=== PATIENT | female | born 1990 | race Caucasian/White ===

== ENCOUNTER 2020-12-28 13:10 | Outpatient (CLI) | payer MEDICAID ==
[2020-12-28 13:56] LABS: Appearance,Urine Clear (Clear); Bilirubin,Urine Negative (Negative); Blood,Urine Negative (Negative); Color,Urine Light Yellow; Glucose,Urine (UA) Negative (Negative); Ketones,Urine Negative (Negative); Leukocyte Esterase,Urine Negative (Negative); Nitrite,Urine Negative (Negative); PH, Urine 6.5 (5.0-8.0); Protein,Urine Negative (Negative); Specific Gravity,Urine 1.003 (1.001-1.035); Urobilinogen,Urine <2.0 mg/dL (<2.0)
[2020-12-28 14:10] LABS: Creatinine,Urine Random 21.1 mg/dL; Protein/Creatinine Ratio,Urine 0.521
[2020-12-28 14:30] LABS: Glucose,Whole Blood 78 mg/dL (75-99)
[2020-12-28 15:16] LABS: Basophils % (A) 0 %; Eosinophils # (A) 0.1 k/uL (0-0.7); Eosinophils % (A) 1 %; HCT 37.1 % (34.0-46.0); HGB 12.4 gm/dL (11.4-16.0); Lymphocytes # (A) 1.5 k/uL (1.0-4.8); Lymphocytes % (A) 18 %; MCH 29.9 pg (25.0-35.0); MCHC 33.3 g/dL (31.0-37.0); MCV 89.8 fL (80.0-100.0); Mean Platelet Volume 7.9; Monocytes # (A) 0.3 k/uL (0-1.0); Monocytes % (A) 3 %; Neutrophils # (A) 6.5 k/uL (1.3-7.7); Neutrophils % (A) 77 %; Platelet Count 218 k/uL (150-450); RBC 4.13 m/uL (3.80-5.40); RDW 13.5 % (11.5-15.5); WBC 8.4 k/uL (3.8-10.6)
[2020-12-28 15:28] LABS: ALT 12 U/L (4-34); AST 19 U/L (14-36); African American GFR (CKD) >90 (>60 ml/min/1.73 sqM); Blood Urea Nitrogen 5 mg/dL (7-17); LDH 321 U/L (313-618); Non-African American GFR(CKD) >90 (>60 ml/min/1.73 sqM)
[2020-12-28 16:21] VITALS: BP 133/65; PULSE 74; RESP 18; TEMP 97.8
== END 2020-12-28 15:55 | disposition home or self-care (01) ==
LOC: FBPOP 13:10
PROVIDERS: ATTEND Obstetrics & Gynecology
DX: O14.93 Unspecified pre-eclampsia, third trimester (principal); Z3A.30 30 weeks gestation of pregnancy
CPT/HCPCS: 59025; 81003; 82565; 82570; 83615; 84156; 84450; 84460; 84520; 84550; 85025; 99215

== ENCOUNTER → 2021-01-16 | Outpatient (CLI) | payer MEDICAID ==
--- NOTE | 2021-01-16 16:18 | US ---
EXAMINATION TYPE: US OB >= 14 wk fetus DATE OF EXAM: 01/16/2021 COMPARISON: None CLINICAL HISTORY: O36.63X0 Large for date,O99.810 Gestational diabet, LGA, scheduled for TECHNIQUE: OBTA GESTATIONAL AGE / DATING Physician Established: (32 weeks/5 days) EDC: 03/08/2021 Dates by LMP: LMP unknown Dates by First Scan: No previous this is first scan here Dates by Current Scan: (33 weeks/2 days) EDC: 03/04/2021 SURVEY IUP: Single PLACENTA: Anterior PREVIA: No Previa DINORAH: 13.1 cm Normal CERVICAL LENGTH (transabdominal: norm > 3.0cm): 3.5 cm BIOMETRY PRESENTATION: Vertex LIE: Longitudinal BPD: 8.6 cm 34 weeks / 4 days HC: 31.2 cm 35 weeks / 0 days AC: 29.6 cm 33 weeks / 4 days FL: 6.3 cm 32 weeks / 3 days ESTIMATED WEIGHT IN GRAMS: 2201 grams ESTIMATED WEIGHT IN LBS/OZ: 4 lbs. 14 oz. WEIGHT PERCENTAGE BASED ON ESTABLISHED DATES: 64.5% HC/AC: 1.1 Normal FL/AC: 21.2 Normal HEART RATE: 120 bpm RHYTHM: Normal IMPRESSION: 1. Single intrauterine gestation estimated at 33 weeks 2 days gestation based on current ultrasound m easurements. Cardiac activity measures 120 bpm.
== END | disposition home or self-care (01) ==
LOC: RADUSWWP 12:26
PROVIDERS: ATTEND Obstetrics & Gynecology
DX: O36.63X0 Maternal care for excessive fetal growth, third trimester, not applicable or unspecified (principal); O24.419 Gestational diabetes mellitus in pregnancy, unspecified control; Z3A.33 33 weeks gestation of pregnancy
CPT/HCPCS: 76805

== ENCOUNTER 2021-02-14 16:34 | Outpatient (CLI) | payer MEDICAID ==
[2021-02-14 18:28] VITALS: BP 113/54; PULSE 73; RESP 18; TEMP 97.2
--- NOTE | 2021-02-14 18:49 | US ---
EXAMINATION TYPE: US OB limited DATE OF EXAM: 02/14/2021 COMPARISON: US CLINICAL HISTORY: gestational diabetes.; C section x 1 EXAM PERFORMED: Transabdominal (TA) for DINORAH and weight. GESTATIONAL AGE / DATING Physician Established: (36 weeks/6 days) EDC: 03/08/2021 Dates by Current Scan: (37 weeks/2 days) EDC: 03/05/2021 SURVEY PLACENTA: Anterior PREVIA: No Previa EFW: 3322g, or (7lb 5oz). DINORAH: 7.23 cm first quantitative measure; 6.94cm on 2nd quantitative measure, Oligohydramnios note d as DINORAH less than10.0cm minimum volume per department protocols. 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 IMPRESSION: 1. LOW AMNIOTIC FLUID INDEX. CLINICAL CORRELATION RECOMMENDED. 2. SINGLE INTRAUTERINE FETUS WITH HEART RATE OF 159 BPM.
== END 2021-02-14 18:15 | disposition home or self-care (01) ==
LOC: FBPOP 16:34
PROVIDERS: ATTEND Obstetrics & Gynecology
DX: O24.419 Gestational diabetes mellitus in pregnancy, unspecified control (principal); Z3A.37 37 weeks gestation of pregnancy
CPT/HCPCS: 59025; 76815

== ENCOUNTER 2021-02-17 09:20 | Outpatient (CLI) | payer MEDICAID ==
[2021-02-17 10:27] VITALS: BP 132/60; PULSE 70; RESP 18; TEMP 96.5
--- NOTE | 2021-02-20 07:39 | P.MSEPDOC ---
Presenting Problems - Arrival Data Date of Arrival on Unit: 02/17/21 Time of Arrival on Unit: 09:20 Mode of Transport: Ambulatory - Complaint OB-Reason for Admission/Chief Complaint: NST Comment: pt has written order from Dr. Potts for nst's for gest diabetes Medical History - Information : 3 Para: 1 Term: 1 : 1 Abortions: Spontaneous or Elective: 0 Number of Living Children: 1 - Gestational Age Gestational Age by DARA (wks/days): 37 Weeks and 2 Days Review of Systems - Review of Systems Constitutional: No problems Breast: No problems ENT: No problems Cardiovascular: No problems Respiratory: No problems Gastrointestinal: No problems Genitourinary: No problems Musculoskeletal: No problems Neurological: No problems Skin: No problems Vital Signs - Temperature Temperature: 96.5 F Temperature Source: Axillary - Pulse Right Brachial Pulse Rate: 70 Pulse Assessment Method: Auscultation - Respirations Respiratory Rate: 18 Oxygen Delivery Method: Room Air - Blood Pressure Right Arm Blood Pressure: 132/60 Blood Pressure Mean: 84 Blood Pressure Source: Automatic Cuff Medical Screen Scoring - Assessment - Baby A Baseline FHR: 140 Heart Rate - NICHD Category: Category I (Normal) NST: Reactive Physician Notification - Physician Notified Physician Notified Date: 02/17/21 Physician Notified Time: 09:20 Physician: Jaleesa Stewart New Order Received: Yes - Notification Comment Comment: pt discharged home, follow up on Friday for scheduled appt with Dr. Potts Maternal Triage Index - Maternal Triage Index Presenting for scheduled procedure w/no complaint: No - Stat/Priority 1 Stat Priority 1: No - Urgent/Priority 2 Urgent Priority 2: No - Prompt/Priority 3 Prompt Priority 3: No - Non-Urgent/Priority 4 Non-Urgent Priority 4: No - Scheduled/Requesting Priority 5 Scheduled/Requesting Priority 5: Yes Criteria Met for Priority 5: pt has twice a week nst written order Disposition - Disposition OB Disposition: Triage, Discharge to home, Written follow up instructions reviewed Discharge Date: 02/17/21 Discharge Time: 10:05 I agree with the RN Medical Screening Exam: Yes Case reviewed; plan agreed upon as documented in EMR&OBIX.: Yes Diagnosis: GESTATIONAL DIABETES IN THE PUERPERIUM, DIET CONTROLLED
== END 2021-02-17 10:05 | disposition home or self-care (01) ==
LOC: FBPOP 09:20
PROVIDERS: ATTEND Obstetrics & Gynecology
DX: O24.419 Gestational diabetes mellitus in pregnancy, unspecified control (principal); Z3A.37 37 weeks gestation of pregnancy
CPT/HCPCS: 59025

== ENCOUNTER 2021-02-19 09:56 | Outpatient (CLI) | payer MEDICAID ==
--- NOTE | 2021-02-19 10:51 | US ---
EXAMINATION TYPE: US OB limited DATE OF EXAM: 02/19/2021 COMPARISON: 02/14/2021 CLINICAL HISTORY: 30-year-old female assess DINORAH. EXAM PERFORMED: Transabdominal (TA) GESTATIONAL AGE / DATING Physician Established: (37 weeks/4 days) EDC: 03/08/2021 SURVEY DINORAH: 6.0 cm, oligohydramnios (previously measured 7.2 cm) HEART RATE: 149 bpm RHYTHM: Normal IMPRESSION: Redemonstrated oligohydramnios, DINORAH measured at 6.0 cm (versus 7.2 cm on 02/14/2021).
[2021-02-19 11:14] VITALS: BP 120/65; PULSE 83; RESP 18; TEMP 97.6
== END 2021-02-19 11:10 | disposition home or self-care (01) ==
LOC: FBPOP 09:56
PROVIDERS: ATTEND Obstetrics & Gynecology
DX: O24.419 Gestational diabetes mellitus in pregnancy, unspecified control (principal); Z3A.37 37 weeks gestation of pregnancy
CPT/HCPCS: 59025; 76815

== ENCOUNTER → 2021-07-26 | Outpatient (CLI) | payer MEDICAID ==
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
== END | disposition home or self-care (01) ==
LOC: RADCTMAIN 15:06
PROVIDERS: ATTEND Internal Medicine
DX: R09.89 Other specified symptoms and signs involving the circulatory and respiratory systems (principal)
CPT/HCPCS: 71275; Q9967

== ENCOUNTER 2021-09-24 20:54 | Emergency (ER) | payer MEDICAID ==
[2021-09-24 21:06] VITALS: TEMP 98.2
[2021-09-25] MEDS ORDERED: SODIUM CHLORIDE 0.9% 1,000 ML IV ONE (00:26)
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
--- NOTE | 2021-09-25 00:51 | XR ---
EXAMINATION TYPE: XR chest 2V DATE OF EXAM: 09/25/2021 COMPARISON: NONE HISTORY: Dizziness TECHNIQUE: 2 view FINDINGS: Heart and mediastinum are normal. Lungs are clear. Diaphragm is normal. Bony thorax is inta ct. The pulmonary vascularity is normal. IMPRESSION: Normal chest.
[2021-09-25 00:56] VITALS: RESP 16
[2021-09-25 01:03] LABS: Basophils # (A) 0.1 k/uL (0-0.2); Basophils % (A) 1 %; Eosinophils # (A) 0.1 k/uL (0-0.7); Eosinophils % (A) 2 %; HCT 41.2 % (34.0-46.0); HGB 13.3 gm/dL (11.4-16.0); Lymphocytes # (A) 2.1 k/uL (1.0-4.8); Lymphocytes % (A) 31 %; MCHC 32.3 g/dL (31.0-37.0); MCV 86.8 fL (80.0-100.0); Mean Platelet Volume 7.8; Monocytes # (A) 0.3 k/uL (0-1.0); Monocytes % (A) 4 %; Neutrophils # (A) 4.1 k/uL (1.3-7.7); Neutrophils % (A) 61 %; Platelet Count 244 k/uL (150-450); RBC 4.75 m/uL (3.80-5.40); RDW 13.3 % (11.5-15.5); WBC 6.8 k/uL (3.8-10.6)
[2021-09-25 01:16] LABS: ALT 22 U/L (4-34); AST 30 U/L (14-36); African American GFR (CKD) >90 (>60 ml/min/1.73 sqM); Alkaline Phosphatase 73 U/L (38-126); Anion Gap 13 mmol/L; Blood Urea Nitrogen 11 mg/dL (7-17); Calcium 10.1 mg/dL (8.4-10.2); Carbon Dioxide 26 mmol/L (22-30); Chloride 100 mmol/L (98-107); Glucose 105 mg/dL (74-99); Magnesium 1.9 mg/dL (1.6-2.3); Non-African American GFR(CKD) >90 (>60 ml/min/1.73 sqM); Potassium 4.2 mmol/L (3.5-5.1); Sodium 139 mmol/L (137-145); Total Bilirubin 0.4 mg/dL (0.2-1.3); Total Protein 8.3 g/dL (6.3-8.2)
[2021-09-25 02:21] LABS: Appearance,Urine Clear (Clear); Bilirubin,Urine Negative (Negative); Blood,Urine Negative (Negative); Color,Urine Colorless; Glucose,Urine (UA) Negative (Negative); Ketones,Urine Negative (Negative); Leukocyte Esterase,Urine Negative (Negative); Nitrite,Urine Negative (Negative); PH, Urine 6.5 (5.0-8.0); Protein,Urine Negative (Negative); Specific Gravity,Urine 1.005 (1.001-1.035); Urobilinogen,Urine <2.0 mg/dL (<2.0)
[2021-09-25 03:09] VITALS: BP 127/78; PULSE 61
== END 2021-09-25 03:13 | disposition home or self-care (01) ==
LOC: EC 20:54
DX: R42 Dizziness and giddiness (principal); R09.89 Other specified symptoms and signs involving the circulatory and respiratory systems; I10 Essential (primary) hypertension; Z87.891 Personal history of nicotine dependence; Z79.899 Other long term (current) drug therapy; Z20.822 Contact with and (suspected) exposure to COVID-19
CPT/HCPCS: 36415; 71046; 80053; 81003; 81025; 83735; 84484; 85025; 87635; 93005; 96360; 99284